=== PATIENT | male | born 1985 | race African-American/Black ===

== ENCOUNTER 2020-07-30 23:58 | Emergency (ER) | payer BC, OTHER ==
[~2020-07-30] VITALS: Ht 180.3 cm; Wt 122.5 kg
[2020-07-31 00:39] VITALS: BP 124/68
== END 2020-07-31 00:43 | disposition home or self-care (01) ==
LOC: ER 07-31 00:01
DX: S61.210A Laceration without foreign body of right index finger without damage to nail, initial encounter (principal); W26.8XXA Contact with other sharp object(s), not elsewhere classified, initial encounter; Y93.E9 Activity, other interior property and clothing maintenance; Y92.098 Other place in other non-institutional residence as the place of occurrence of the external cause; Y99.8 Other external cause status

== ENCOUNTER 2020-11-29 10:59 | Emergency (ER) | payer MEDICAID, OTHER ==
[~2020-11-29] VITALS: Ht 180.3 cm; Wt 122.5 kg
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
[2020-11-29] MEDS ORDERED: TDAP [DIPH/PERTUSSIS/TET] 0.5 ML VIAL IM ONE ×2 (11:30→11:46)
--- NOTE | 2020-11-29 11:58 | NUR ---
Patient discharged to home in stable condition. Written and verbal after care instructions given. Patient verbalizes understanding of instruction. Pt ambulatory with a steady gait
[2020-11-29 12:24] VITALS: BP 114/72
== END 2020-11-29 11:58 | disposition home or self-care (01) ==
LOC: ER 11:03
DX: S41.012A Laceration without foreign body of left shoulder, initial encounter (principal); Y08.89XA Assault by other specified means, initial encounter; Y93.89 Activity, other specified; Y92.89 Other specified places as the place of occurrence of the external cause; Y99.8 Other external cause status
CPT/HCPCS: 90715

== ENCOUNTER 2020-12-20 15:34 | Emergency (ER) | payer MEDICAID ==
[~2020-12-20] VITALS: Ht 180.3 cm; Wt 127.0 kg
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
--- NOTE | 2020-12-20 16:03 | NUR ---
SEEN BY DR RAMSEY
[2020-12-20 16:17] VITALS: BP 137/81
--- NOTE | 2020-12-20 16:17 | NUR ---
Patient discharged to home in stable condition. Written and verbal after care instructions given. Patient verbalizes understanding of instruction.
== END 2020-12-20 16:18 | disposition home or self-care (01) ==
LOC: ER 15:38
DX: S41.112D Laceration without foreign body of left upper arm, subsequent encounter (principal); X58.XXXD Exposure to other specified factors, subsequent encounter

== ENCOUNTER 2021-05-29 14:57 | Emergency (ER) | payer SELFPAY ==
[~2021-05-29] VITALS: Ht 177.8 cm; Wt 127.0 kg
[2021-05-29 14:57] VITALS: BP 118/99
--- NOTE | 2021-05-29 15:32 | NUR ---
Patient discharged to home in stable condition. Written and verbal after care instructions given. Patient verbalizes understanding of instruction.
--- NOTE | 2021-05-29 15:33 | NUR ---
[facility]
== END 2021-05-29 23:59 | disposition home or self-care (01) ==
LOC: ER 14:57
DX: M25.512 Pain in left shoulder (principal); V49.49XA Driver injured in collision with other motor vehicles in traffic accident, initial encounter; Y93.89 Activity, other specified; Y92.413 State road as the place of occurrence of the external cause; Y99.8 Other external cause status